=== PATIENT | female | born 1975 | race Caucasian/White ===

== ENCOUNTER 2017-07-16 19:51 | Emergency (ER) | payer BC ==
[2017-07-16 21:58] LABS: HEMOGLOBIN 12.3 gm/dl (12.3-15.3); RED BLOOD COUNT 4.13 M/UL (4.00-5.10); WHITE BLOOD COUNT 19.1 K/UL (4.5-11.0)
[2017-07-16 22:16] LABS: BUN/CREATININE RATIO 19 (0-10)
== END 2017-07-17 01:14 | disposition home or self-care (01) ==
LOC: ER1 19:51
PROVIDERS: Physician Assistant Medical
DX: N83.201 Unspecified ovarian cyst, right side (principal); Z87.42 Personal history of other diseases of the female genital tract; Z90.49 Acquired absence of other specified parts of digestive tract
CPT/HCPCS: 76830; 80053; 81001; 82150; 83605; 83690; 84703; 85025; 86140; 87086; 96374; 96375; 99284; J1885; J2405; J7030; J7050; Q9962